=== PATIENT | female | born 1975 ===

== ENCOUNTER 2021-07-10 09:46 | Emergency (ER) | payer OTHER ==
[2021-07-10 10:15] VITALS: BP 141/90
--- NOTE | 2021-07-10 10:29 | Emergency Department Report ---
Eye Injury/Foreign Body - HPI Eye Location: Right Severity: Mild Tetanus Status: Up to Date Eye Symptoms: Eye Pain: No, Blurred Vision: No, Eye Redness: No, Grinding/Hammering Metal: No, Contact Lens Use: No, Recalls Injury: No, Photophobia: No Other History: 45 yo comes to ER with > 1 w hx stye in right eye. OTC meds not helping. Did not see eye MD. no trauma. no contacts ED Review of Systems ROS: Stated complaint: RT EYE REDNESS Other details as noted in HPI Comment: All other systems reviewed and negative ED Past Medical Hx - Past Medical History Previous Medical History?: No - Surgical History Past Surgical History?: No - Family History Family history: no significant - Social History Smoking Status: Never Smoker Substance Use Type: None - Medications Home Medications: Home Medications Medication Instructions Recorded Confirmed Last Taken Type Erythromycin [Erythromycin Ophth 0.5 inch OD Q6H #1 tube 07/10/21 Unknown Rx Oint] Eye Injury Exam - Exam General: Vital signs noted. No distress. Alert and acting appropriately. stye inner [place] left eye eoms intact no trauma tried otc meds- did not work no change in va no tearing s1s2 lungs cta abd snt ED Course Vital Signs 07/10/21 10:12 Temperature 98.1 F Pulse Rate 75 Respiratory 16 Rate Blood Pressure 141/90 [Left] O2 Sat by Pulse 96 Oximetry ED Medical Decision Making - Medical Decision Making Vital Signs 07/10/21 10:12 Temperature 98.1 F Pulse Rate 75 Respiratory 16 Rate Blood Pressure 141/90 [Left] O2 Sat by Pulse 96 Oximetry - Differential Diagnosis stye Critical care attestation.: If time is entered above; I have spent that time in minutes in the direct care of this critically ill patient, excluding procedure time. ED Disposition Clinical Impression: Stye Qualifiers: Laterality: right Eyelid: lower Qualified Code(s): H00.012 - Hordeolum externum right lower eyelid Disposition: 01 HOME / SELF CARE / HOMELESS Is pt being admited?: No Does the pt Need Aspirin: No Condition: Stable Instructions: Stye Additional Instructions: warm compresses med as ordered today follow up with eye MD next week referral below these can take a while to go away Prescriptions: Erythromycin [Erythromycin Ophth Oint] 0.5 inch OD Q6H #1 tube Referrals: SHEN AGIULAR MD [Staff Physician] - 3-5 Days Time of Disposition: 10:27
== END 2021-07-10 11:13 | disposition home or self-care (01) ==
LOC: ED 09:46
DX: H00.013 Hordeolum externum right eye, unspecified eyelid (principal)
CPT/HCPCS: 99282